=== PATIENT | female | born 1985 | race Caucasian/White ===

== ENCOUNTER 2017-01-05 10:03 | Emergency (ER) | payer OTHER ==
[~2017-01-05] VITALS: Ht 172.7 cm; Wt 47.0 kg
[2017-01-05 11:11] LABS: HEMATOCRIT 42.3 % (37.0-47.0); HEMOGLOBIN 14.6 g/dl (12.0-16.0); IMMATURE GRANULOCYTES 0.5 % (0.0-1.0); MEAN CELL VOLUME 90.2 fL CALC (80.0-100.0); MEAN CORPUSCULAR HGB 31.1 pG CALC (26.0-32.0); MEAN CORPUSCULAR HGB CONC 34.5 g/L CALC (32.0-36.0); NEUT# 6.6 thou/uL (2.00-7.15); RED BLOOD COUNT 4.69 mill/uL (4.20-5.60); RED CELL DISTRI WIDTH 12.8 % (11.5-15.5)
[2017-01-05 11:30] LABS: ALBUMIN 5.1 g/dL (3.2-5.0); ALKALINE PHOSPHATASE 81 u/l (38-126); AMYLASE 47 u/l (30-110); ANION GAP 16 (6-22 (CALC)); BILIRUBIN, TOTAL 0.7 mg/dL (0.0-1.4); BUN 14 mg/dL (7-17); BUN/CREATININE RATIO 23 (12-20 (CALC)); CALCIUM 9.3 mg/dL (8.4-10.2); CARBON DIOXIDE 28 mmol/l (22-30); CHLORIDE 108 mmol/l (95-108); CREATININE 0.6 mg/dL (0.5-1.0); GFR > 60 ML/MIN (>=60 (CALC)); GFR FOR AFR.AMER. > 60 ML/MIN (>=60 (CALC)); GLUCOSE 114 mg/dL (65-105); LIPASE 26 u/l (23-300); POTASSIUM 3.3 mmol/l (3.5-5.1); SGOT/AST 21 u/l (14-36); SGPT/ALT 25 u/l (9-52); SODIUM 149 mmol/l (137-146); TOTAL PROTEIN 8.6 g/dL (6.3-8.2)
[2017-01-05 12:09] LABS: URINE BILIRUBIN - DIPSTICK NEGATIVE (NEGATIVE); URINE BLOOD DIPSTICK SMALL (NEGATIVE); URINE COLOR YELLOW; URINE GLUCOSE - DIPSTICK NEGATIVE (NEGATIVE); URINE KETONE 15 mg/dL (NEGATIVE); URINE LEUK ESTERASE NEGATIVE (NEGATIVE); URINE NITRITE - DIPSTICK NEGATIVE (Negative); URINE PH 8.5 (4.5-8.0); URINE PROTEIN - DIPSTICK 30 mg/dL (NEG-TRACE); URINE SPECIFIC GRAVITY 1.015; URINE UROBILINOGEN - DIPSTICK 0.2 E.U./dL (0.2)
[2017-01-05 12:17] LABS: URINE CLARITY SLIGHT CLOUDY; URINE EPITHELIAL CELLS MODERATE EPI/hpf (0-FEW)
[2017-01-05] MEDS ORDERED: LORTAB 1010 MG PO (19:22)
[2017-01-05] MEDS ORDERED: ZOFRAN ODT4 MG PO (19:22)
[2017-01-05 19:24] VITALS: BP 121/57
== END 2017-01-05 19:31 | disposition home or self-care (01) | DRG 392 ==
LOC: ED 10:03
PROVIDERS: Emergency Medicine
DX: R10.32 Left lower quadrant pain (principal); R10.2 Pelvic and perineal pain; N85.8 Other specified noninflammatory disorders of uterus
CPT/HCPCS: Q9967

== ENCOUNTER 2022-05-25 03:43 | Emergency (ER) | payer SELFPAY ==
[~2022-05-25] VITALS: Ht 172.7 cm; Wt 68.2 kg
[~2022-05-25 03:43] MED LIST: LORTAB 1010 MG PO; ZOFRAN ODT4 MG PO
[2022-05-25 04:26] LABS: HEMOGLOBIN 14.4 g/dl (12.0-16.0); IMMATURE GRANULOCYTES 0.7 % (0.0-5.0); MEAN CELL VOLUME 94.5 fL CALC (80.0-100.0); MEAN CORPUSCULAR HGB 31.6 pG CALC (26.0-32.0); MEAN CORPUSCULAR HGB CONC 33.5 g/dL CAL (32.0-36.0); NEUT# 6.77 thou/uL (2.00-7.15); RED BLOOD COUNT 4.55 mill/uL (4.20-5.60); RED CELL DISTRI WIDTH 12.5 % (11.5-15.5)
[2022-05-25 04:38] LABS: ALKALINE PHOSPHATASE 83 u/l (38-126); AMYLASE 93 u/l (30-110); ANION GAP 15 (6-22 (CALC)); BUN 15 mg/dL (7-17); BUN/CREATININE RATIO 19 (12-20 (CALC)); CARBON DIOXIDE 29 mmol/l (22-30); CHLORIDE 105 mmol/l (95-108); CREATININE 0.8 mg/dL (0.5-1.0); GFR FOR AFR.AMER. > 60 ML/MIN (>=60 (CALC)); GFR OTHER RACES > 60 ML/MIN (>=60 (CALC)); LIPASE 16 u/l (23-300); POTASSIUM 3.8 mmol/l (3.5-5.1); SGOT/AST 26 u/l (14-36); SODIUM 145 mmol/l (137-146); TOTAL PROTEIN 8.3 g/dL (6.3-8.2)
[2022-05-25 04:44] LABS: BILIRUBIN, TOTAL 0.4 mg/dL (0.0-1.4)
[2022-05-25 04:50] LABS: MYOGLOBIN 27 ng/mL (0 - 62)
[2022-05-25 05:29] LABS: URINE BILIRUBIN - DIPSTICK NEGATIVE (NEGATIVE); URINE BLOOD DIPSTICK NEGATIVE (NEGATIVE); URINE COLOR YELLOW; URINE GLUCOSE - DIPSTICK NEGATIVE (NEGATIVE); URINE KETONE NEGATIVE (NEGATIVE); URINE NITRITE - DIPSTICK NEGATIVE (Negative); URINE PH 8.5 (4.5-8.0); URINE PROTEIN - DIPSTICK TRACE mg/dL (NEG-TRACE); URINE SPECIFIC GRAVITY 1.015; URINE UROBILINOGEN - DIPSTICK 0.2 E.U./dL (0.2)
[2022-05-25 05:36] LABS: URINE LEUK ESTERASE NEGATIVE (NEGATIVE)
[2022-05-25] MEDS ORDERED: PREVACID30 M3 PO (06:47)
[2022-05-25] MEDS ORDERED: ONDANSETRON4 MG PO (06:47)
[2022-05-25 06:57] VITALS: BP 159/108
== END 2022-05-25 07:05 | disposition home or self-care (01) | DRG 392 ==
LOC: ED 03:43
PROVIDERS: Emergency Medicine
DX: K52.9 Noninfective gastroenteritis and colitis, unspecified (principal); R10.9 Unspecified abdominal pain
CPT/HCPCS: Q9967; S0164

== ENCOUNTER 2022-09-13 19:56 | Emergency (ER) | payer SELFPAY ==
[~2022-09-13] VITALS: Ht 171.4 cm; Wt 68.0 kg
[2022-09-13] VITALS (9 sets, daily range): BP systolic 103–128; BP diastolic 71–87
[~2022-09-13 19:56] MED LIST changes: +ONDANSETRON4 MG PO; +PREVACID30 M3 PO
[2022-09-13] MEDS ORDERED: IS-ZC 50 50 MG1 TAB (20:26)
[2022-09-13] MEDS ORDERED: B121000 MC1 (20:26)
[2022-09-13] MEDS ORDERED: VITAMIN C + PO (20:26)
[2022-09-13] MEDS ORDERED: BENADRYL 25MG C25 MG PO (20:27)
[2022-09-13] MEDS ORDERED: TYLENOL COLD (20:27)
[2022-09-13 21:00] LABS: BASO% 0.5 % (0-3); EOS% 0.2 % (0-8); HEMATOCRIT 46.1 % (37.0-47.0); IMMATURE GRANULOCYTES 0.2 % (0.0-5.0); LYMPH% 23.3 % (15-41); MEAN CORPUSCULAR HGB 30.8 pG CALC (26.0-32.0); MEAN CORPUSCULAR HGB CONC 34.7 g/dL CAL (32.0-36.0); NEUT# 3.61 thou/uL (2.00-7.15); NEUT% 65.8 % (42-76); RED BLOOD COUNT 5.19 mill/uL (4.20-5.60); RED CELL DISTRI WIDTH 12.1 % (11.5-15.5)
[2022-09-13 21:01] LABS: MEAN CELL VOLUME 88.8 fL CALC (80.0-100.0)
[2022-09-13 21:11] LABS: ALBUMIN 4.8 g/dL (3.2-5.0); ALKALINE PHOSPHATASE 86 u/l (38-126); BILIRUBIN, TOTAL 0.3 mg/dL (0.02-1.3); BUN 16 mg/dL (7-17); BUN/CREATININE RATIO 15 (12-20 (CALC)); CHLORIDE 103 mmol/l (95-108); CREATININE 1.1 mg/dL (0.5-1.0); GFR FOR AFR.AMER. > 60 ML/MIN (>=60 (CALC)); GFR OTHER RACES 55 ML/MIN (>=60 (CALC)); POTASSIUM 3.4 mmol/l (3.5-5.1); SGOT/AST 28 u/l (14-36); SODIUM 138 mmol/l (137-146); TOTAL PROTEIN 8.3 g/dL (6.3-8.2)
[2022-09-13 21:12] LABS: ANION GAP 16 (6-22 (CALC)); CARBON DIOXIDE 22 mmol/l (22-30)
[2022-09-13] MEDS ORDERED: NAPROXEN500 MG PO (22:01)
[2022-09-13] MEDS ORDERED: TAM75CAP PO (22:01)
[2022-09-14] MEDS ORDERED: PROMETHAZINE HY25 M1 PO (17:32)
== END 2022-09-13 23:12 | disposition home or self-care (01) | DRG 153 ==
LOC: ED 19:56
PROVIDERS: Emergency Medicine
DX: J11.1 Influenza due to unidentified influenza virus with other respiratory manifestations (principal); R11.2 Nausea with vomiting, unspecified

== ENCOUNTER 2022-09-14 12:39 | Emergency (ER) | payer SELFPAY ==
[~2022-09-14] VITALS: Ht 171.4 cm; Wt 68.0 kg
[~2022-09-14 12:39] MED LIST changes: +B121000 MC1; +BENADRYL 25MG C25 MG PO; +IS-ZC 50 50 MG1 TAB; +NAPROXEN500 MG PO; +TAM75CAP PO; +TYLENOL COLD; +VITAMIN C + PO
[2022-09-14 13:50] LABS: BASO% 0.6 % (0-3); EOS% 0.2 % (0-8); HEMATOCRIT 48.2 % (37.0-47.0); HEMOGLOBIN 16.8 g/dl (12.0-16.0); IMMATURE GRANULOCYTES 0.2 % (0.0-5.0); LYMPH% 32.1 % (15-41); MEAN CELL VOLUME 88.9 fL CALC (80.0-100.0); MEAN CORPUSCULAR HGB CONC 34.9 g/dL CAL (32.0-36.0); MONO% 11.2 % (2-13); NEUT# 3.69 thou/uL (2.00-7.15); NEUT% 55.7 % (42-76); RED BLOOD COUNT 5.42 mill/uL (4.20-5.60); RED CELL DISTRI WIDTH 12.1 % (11.5-15.5)
[2022-09-14 14:07] LABS: ALKALINE PHOSPHATASE 89 u/l (38-126); ANION GAP 17 (6-22 (CALC)); BILIRUBIN, TOTAL 0.3 mg/dL (0.02-1.3); BUN 22 mg/dL (7-17); BUN/CREATININE RATIO 18 (12-20 (CALC)); CARBON DIOXIDE 25 mmol/l (22-30); CHLORIDE 102 mmol/l (95-108); CREATININE 1.2 mg/dL (0.5-1.0); GFR FOR AFR.AMER. > 60 ML/MIN (>=60 (CALC)); GFR OTHER RACES 50 ML/MIN (>=60 (CALC)); LIPASE 32 u/l (23-300); POTASSIUM 3.2 mmol/l (3.5-5.1); SGOT/AST 29 u/l (14-36); SODIUM 140 mmol/l (137-146)
[2022-09-14 14:48] LABS: URINE BLOOD DIPSTICK SMALL (NEGATIVE); URINE COLOR YELLOW; URINE GLUCOSE - DIPSTICK NEGATIVE (NEGATIVE); URINE KETONE TRACE mg/dL (NEGATIVE); URINE LEUK ESTERASE NEGATIVE (NEGATIVE); URINE PROTEIN - DIPSTICK 30 mg/dL (NEG-TRACE); URINE SPECIFIC GRAVITY >=1.030; URINE UROBILINOGEN - DIPSTICK 0.2 E.U./dL (0.2)
[2022-09-14 14:52] LABS: URINE BILIRUBIN - DIPSTICK SMALL (NEGATIVE); URINE NITRITE - DIPSTICK NEGATIVE (Negative)
[2022-09-14 14:57] LABS: URINE CASTS FEW lpf (NONE-RARE); URINE SQUAMOUS EPITHELIAL CELL MODERATE EPI/hpf (0-FEW)
[2022-09-14] MEDS ORDERED: PROMETHAZINE HY25 M1 PO (17:32)
[2022-09-14 17:38] VITALS: BP 143/95
== END 2022-09-14 17:46 | disposition home or self-care (01) | DRG 153 ==
LOC: ED 12:39 → ED-I 15:30 → ED 17:46
PROVIDERS: Family Medicine
DX: J11.1 Influenza due to unidentified influenza virus with other respiratory manifestations (principal); R11.2 Nausea with vomiting, unspecified
CPT/HCPCS: Q9967

== ENCOUNTER 2022-12-25 21:45 | Emergency (ER) | payer SELFPAY ==
[~2022-12-25] VITALS: Ht 171.4 cm; Wt 68.0 kg
[2022-12-25] VITALS (8 sets, daily range): BP systolic 132–163; BP diastolic 94–105
[~2022-12-25 21:45] MED LIST changes: +PROMETHAZINE HY25 M1 PO
[2022-12-25 22:23] LABS: BASO% 0.4 % (0-3); EOS% 0.1 % (0-8); HEMATOCRIT 46.9 % (37.0-47.0); HEMOGLOBIN 15.8 g/dl (12.0-16.0); IMMATURE GRANULOCYTES 0.1 % (0.0-5.0); MEAN CELL VOLUME 92.5 fL CALC (80.0-100.0); MEAN CORPUSCULAR HGB 31.2 pG CALC (26.0-32.0); MEAN CORPUSCULAR HGB CONC 33.7 g/dL CAL (32.0-36.0); MONO% 6.3 % (2-13); NEUT# 9.96 thou/uL (2.00-7.15); NEUT% 74.1 % (42-76); RED BLOOD COUNT 5.07 mill/uL (4.20-5.60); RED CELL DISTRI WIDTH 12.3 % (11.5-15.5)
[2022-12-25 22:54] LABS: ALKALINE PHOSPHATASE 101 u/l (38-126); AMYLASE 54 u/l (30-110); ANION GAP 17 (6-22 (CALC)); BUN 16 mg/dL (7-17); BUN/CREATININE RATIO 16 (12-20 (CALC)); CARBON DIOXIDE 27 mmol/l (22-30); CHLORIDE 101 mmol/l (95-108); GFR FOR AFR.AMER. > 60 ML/MIN (>=60 (CALC)); GFR OTHER RACES > 60 ML/MIN (>=60 (CALC)); LIPASE 22 u/l (23-300); POTASSIUM 3.5 mmol/l (3.5-5.1); SGOT/AST 19 u/l (14-36); SODIUM 140 mmol/l (137-146); TOTAL PROTEIN 8.9 g/dL (6.3-8.2)
[2022-12-25 22:55] LABS: BILIRUBIN, TOTAL 0.8 mg/dL (0.02-1.3)
[2022-12-26] VITALS (8 sets, daily range): BP systolic 112–152; BP diastolic 71–101
[2022-12-26] MEDS ORDERED: ONDANSETRON4 MG PO (01:30)
[2022-12-26] MEDS ORDERED: ULTRAM50 MG PO (01:30)
[2022-12-26] MEDS ORDERED: PREVACID30 M1 PO (01:30)
== END 2022-12-26 01:58 | disposition home or self-care (01) | DRG 392 ==
LOC: ED 21:45
PROVIDERS: Emergency Medicine
DX: R10.9 Unspecified abdominal pain (principal); K29.70 Gastritis, unspecified, without bleeding
CPT/HCPCS: Q9967; S0164